=== PATIENT | male | born 1965 | race African-American/Black ===

== ENCOUNTER 2019-10-22 12:06 | Emergency (ER) | payer MEDICARE, SELFPAY ==
[2019-10-22 12:11] VITALS: BP 144/78; PULSE 76; RESP 17; TEMP 38.4; O2SAT 98
--- NOTE | 2019-10-22 13:06 | ED.FEVER ---
HPI - Fever General Chief Complaint: Fever Stated Complaint: not feeling well Time Seen by Provider: 10/22/19 12:31 Source: patient Mode of arrival: ambulatory Limitations: no limitations History of Present Illness HPI Narrative: Patient is a 53-year-old male who presents to emergency department for evaluation of flulike symptoms for the last 3 days with fever chills body aches congestion rhinorrhea presents per private vehicle. Patient notes nausea but denies emesis or diarrhea. Patient on arrival in no distress resting comfortably in the room Related Data Allergies Allergy/AdvReac Type Severity Reaction Status Date / Time No Known Allergies Allergy Verified 10/22/19 12:14 Review of Systems Review of Systems: All systems reviewed & are unremarkable except as noted in HPI and below PMFSH Past Medical History Medical History (Updated 10/22/19 @ 13:12 by Abisai Portillo PA-C) Chronic back pain Surgical History Surgical History (Updated 10/22/19 @ 13:10 by Abisai Portillo PA-C) History of orthopedic surgery Social History Social History Gender identity (if verbalized by the patient): Male Exam Narrative: Exam Narrative: GENERAL: Well-appearing, well-nourished, and in no acute distress. HEAD: Normocephalic, atraumatic. EYES: PERRLA and EOMI. ENT: Nares clear, no rhinorrhea or epistaxis. Mucous membranes moist. Oropharynx without tonsillar hypertrophy exudate or other lesions. NECK: Supple. No adenopathy or masses. CHEST: Clear to auscultation. No respiratory distress. No wheezes rales or rhonchi HEART: Regular rate and rhythm. No murmur heard. EXTREMITIES: Normal range of motion. No edema. SKIN: Warm, dry, no rash. NEURO: No focal deficits. Alert and oriented x3. PSYCH: Normal mood and affect. 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 Patient in the room in no distress aware of case findings treatment plan and diagnosis agreeing to follow-up as directed Vital Signs Vital signs: Vital Signs Temperature 101.2 F H 10/22/19 12:11 Pulse Rate 76 10/22/19 12:11 Respiratory Rate 17 10/22/19 12:11 Blood Pressure 144/78 H 10/22/19 12:11 Pulse Oximetry 98 10/22/19 12:11 Temperature 101.2 F H 10/22/19 12:11 Pulse Rate 76 10/22/19 12:11 Respiratory Rate 17 10/22/19 12:11 Blood Pressure 144/78 H 10/22/19 12:11 Pulse Oximetry 98 10/22/19 12:11 MDM - Fever MDM Narrative Medical decision making narrative: Patient in the room in no distress aware of case findings treatment plan and diagnosis agreeing to follow-up as directed or to return if symptoms worsen or concerns Lab Data Labs: Influenza A Screen Positive Reference Range: Negative Influenza B Screen Negative Reference Range: Negative Discharge Plan Discharge Clinical Impression: Influenza A Patient Disposition: Home, Self-Care Condition: Stable Instructions: Antibiotic Form, Influenza (ED) Additional Instructions: Follow up with your primary care provider within 5-7 days. Go to ER for shortness of breath, difficulty breathing, chest pain, fever/chills, weakness, nauseau/vomitting, etc. or any other concerns. Stay well-hydrated Take any prescribed medications as directed. Follow patient education sheets If you do not have a drug allergy to tylenol or motrin and can tolerate it then take tylenol or motrin as needed for discomfort/pain. Prescriptions: New ibuprofen [IBU] 600 mg tablet 600 mg PO Q6H PRN (Reason: fever or pain) Qty: 7 RF: 0 ondansetron 4 mg tablet,disintegrating 4 mg PO Q6H PRN (Reason: nausea and vomiting) Qty: 7 RF: 0 famotidine [Pepcid] 20 mg tablet 20 mg PO BID Qty: 10 RF: 0 montelukast [Singulair] 10 mg tablet 10 mg PO DAILY Qty: 10 RF: 0 Follow-up/Referrals: PHYSICIAN NOT ON STAFF,NONSTAFF [Primary Care Provider] -
[2019-10-22] MEDS: IBUPROFEN 600 MG TABLET PO (13:16)
[2019-10-22] MEDS: ACETAMINOPHEN 500 MG TABLET 1000 MG PO (13:16)
[2019-10-22 13:25] VITALS: BP 145/80; PULSE 99; RESP 20; TEMP 37.7; O2SAT 99
== END 2019-10-22 13:25 | disposition home or self-care (01) ==
LOC: ANHED 13:14
PROVIDERS: Emergency Provider Emergency Medicine
DX: J10.1 Influenza due to other identified influenza virus with other respiratory manifestations (principal)
CPT/HCPCS: 87804; 99283; A9270